=== PATIENT | male | born 1970 | race Two or more races ===

== ENCOUNTER 2023-11-28 10:00 | Outpatient (CLI) | payer SELFPAY ==
[~2023-11-28 10:00] MED LIST: iohexol 350MG/ML 100ml bottle IV ONE
== END 2023-11-28 17:45 | disposition home or self-care (01) ==
LOC: RAD 10:00
PROVIDERS: ATTEND Internal Medicine Interventional Cardiology
DX: I70.1 Atherosclerosis of renal artery (principal); I70.8 Atherosclerosis of other arteries; R91.8 Other nonspecific abnormal finding of lung field; N40.0 Benign prostatic hyperplasia without lower urinary tract symptoms; R07.9 Chest pain, unspecified; I71.20 Thoracic aortic aneurysm, without rupture, unspecified; I47.10 Supraventricular tachycardia, unspecified; Q23.1 Congenital insufficiency of aortic valve
CPT/HCPCS: 71275; 74174; Q9967

== ENCOUNTER 2024-02-03 10:59 | Day surgery (SDC) | payer SELFPAY ==
[2024-01-30 12:00] LABS: BASOPHILS % (AUTO) 0.5 % (0-1); EOSINOPHILS # (AUTO) 0.1 X10'3 (0-0.9); HEMATOCRIT 45.4 % (42.0-52.0); HEMOGLOBIN 15.7 g/dl (14.0-17.9); LYMPHOCYTES # (AUTO) 1.6 X10'3 (1.1-4.8); LYMPHOCYTES % (AUTO) 28.2 % (21-51); MEAN CORPUSCULAR HGB CONC 34.6 g/dL (33.0-36.5); MEAN CORPUSCULAR VOLUME 86.7 FL (78-98); MEAN PLATELET VOLUME 8.7 FL (7.4-10.4); MONOCYTES # (AUTO) 0.5 X10'3 (0-0.9); MONOCYTES % (AUTO) 8.7 % (2-12); NEUTROPHILS # (AUTO) 3.5 X10'3 (1.8-7.7); NEUTROPHILS % (AUTO) 61.6 % (42-75); PLATELET COUNT 182 X10'3 (140-440); RED BLOOD COUNT 5.23 X10'6 (4.70-6.10); WHITE BLOOD COUNT 5.6 X10'3 (4.5-11.0)
[2024-01-30 12:02] LABS: ALBUMIN 3.6 G/DL (3.4-5.0); ANION GAP 8 (8-16); BLOOD UREA NITROGEN 13 MG/DL (7-18); BUN/CREATININE RATIO 13.3 (10.0-20.0); CALCIUM 8.8 MG/DL (8.5-10.1); CHLORIDE 105 MMOL/L (99-107); CREATININE 0.98 MG/DL (0.60-1.10); GLUCOSE 103 MG/DL (70-104); SODIUM 143 MMOL/L (135-145); TOTAL CARBON DIOXIDE 30.4 MMOL/L (24-32); eGFR 79 ML/MIN
[2024-01-30 12:06] LABS: APTT 28 SECONDS (22-32); PROTHROMBIN TIME 10.5 SECONDS (9.0-12.0)
[2024-02-03] VITALS (10 sets, daily range): BP systolic 102–140; BP diastolic 52–77; PULSE 52–56; RESP 12–17; TEMP 98; O2SAT 95–98
[~2024-02-03] VITALS: Ht 152.4 cm; Wt 85.5 kg
[2024-02-03] MEDS ORDERED: METO-395 PO (11:19)
[2024-02-03] MEDS: normal saline 1,000 ML IV SCH (13:04)
[2024-02-03] MEDS: LORazepam 0.5 MG tablet PO PRN (13:04)
[2024-02-03] MEDS: diphenhydrAMINE 25mg capsule PO PRN (13:04)
[2024-02-03] MEDS ORDERED: heparin 1,000unit/ml 10ml vial 10 ML ONE (13:40)
[2024-02-03] MEDS ORDERED: fentaNYL/PF 50MCG/1 ML 2ML syringe ONE (13:40)
[2024-02-03] MEDS ORDERED: verapamil 2.5 mg/ml inj IV ONE (13:40)
[2024-02-03] MEDS ORDERED: LIDOcaine 1% (10mg/ml) 2ml vial ONE (13:40)
[2024-02-03] MEDS ORDERED: midazolam 1 mg/ML 2ml injection ONE (13:40)
[2024-02-03] MEDS ORDERED: nitroGLYCERIN 500mcg/5mL D5W 5 ML IV ONE (13:41)
[2024-02-03] MEDS ORDERED: iohexol 350MG/ML 100ml bottle IV ONE (13:41)
[2024-02-03] MEDS ORDERED: HYDROcodone/acetaminophen 5mg/325mg tablet PO PRN (15:40)
[2024-02-03] MEDS ORDERED: HYDROcodone/acetaminophen 10/325mg tab PO PRN (15:40)
== END 2024-02-03 18:30 | disposition home or self-care (01) ==
LOC: SSTAY O 10:59
PROVIDERS: ATTEND Internal Medicine Interventional Cardiology
DX: I71.20 Thoracic aortic aneurysm, without rupture, unspecified (principal); I25.10 Atherosclerotic heart disease of native coronary artery without angina pectoris; R94.31 Abnormal electrocardiogram [ECG] [EKG]; E78.00 Pure hypercholesterolemia, unspecified; Z79.899 Other long term (current) drug therapy
CPT/HCPCS: 36415; 80048; 85025; 85610; 85730; 93005; 93458; J1644; J2003; J2250; J3010; J3490; J7030; Q0163; Q9967; 99152; A6258; A6449; C1769; C1894

== ENCOUNTER 2024-03-11 12:33 | Outpatient (CLI) | payer BC, SELFPAY ==
[~2024-03-11] VITALS: Ht 172.7 cm; Wt 83.9 kg
[~2024-03-11 12:33] MED LIST changes: +METO-395 PO; -iohexol 350MG/ML 100ml bottle IV ONE
[2024-03-11] MEDS ORDERED: NO HOME MEDS (13:37)
[2024-03-11 14:09] LABS: BILIRUBIN,URINE NEGATIVE (Neg); CLARITY,URINE CLEAR (Clear); COLOR,URINE STRAW (Yellow); GLUCOSE, URINE NEGATIVE (Neg); KETONES,URINE NEGATIVE (Neg); LEUKOCYTE ESTERASE ,URINE NEGATIVE (Neg); NITRITES, URINE NEGATIVE (Neg); OCCULT BLOOD,URINE NEGATIVE (Neg); PH,URINE 6.5 (4.8-8.0); PROTEIN,URINE NEGATIVE (Neg); UROBILINOGEN,URINE 0.2 E.U/dL (0.2-1.0)
[2024-03-11 14:11] LABS: BASOPHILS % (AUTO) 0.8 % (0-1); EOSINOPHILS # (AUTO) 0.1 X10'3 (0-0.9); EOSINOPHILS % (AUTO) 1.3 % (0-6); MEAN CORPUSCULAR HEMOGLOBIN 30.7 PG (27.0-31.0); MEAN CORPUSCULAR HGB CONC 35.2 g/dL (33.0-36.5); MEAN PLATELET VOLUME 8.4 FL (7.4-10.4); MONOCYTES # (AUTO) 0.6 X10'3 (0-0.9); MONOCYTES % (AUTO) 9.6 % (2-12); NEUTROPHILS # (AUTO) 3.7 X10'3 (1.8-7.7); NEUTROPHILS % (AUTO) 57.3 % (42-75); PRE OP HEMATOCRIT 46.7 % (42.0-52.0); PRE OP HEMOGLOBIN 16.4 g/dL (14.0-17.9); PRE OP PLATELET COUNT 187 X10'3 (140-440); PRE OP WHITE BLOOD COUNT 6.4 10'3 (4.8-10.8); RED BLOOD COUNT 5.36 X10'6 (4.70-6.10); RED CELL DISTRIBUTION WIDTH 12.8 % (11.5-14.5)
[2024-03-11 14:13] LABS: UA COLLECTION TYPE CLN CATCH MIDSTREAM
[2024-03-11 14:23] LABS: ALBUMIN 3.9 G/DL (3.4-5.0); ALBUMIN/GLOBULIN RATIO 0.9 (1.1-1.5); ALKALINE PHOSPHATASE 110 IU/L (46-116); BLOOD UREA NITROGEN 13 MG/DL (7-18); BUN/CREATININE RATIO 13.7 (10.0-20.0); CALCIUM 9.2 MG/DL (8.5-10.1); CHLORIDE 103 MMOL/L (99-107); CREATININE 0.95 MG/DL (0.60-1.10); PRE OP ALT 25 U/L (30-65); PRE OP ANION GAP 8 (8-16); PRE OP AST 16 U/L (10-37); PRE OP BILIRUB, TOTAL 0.9 MG/DL (0.0-1.0); PRE OP GLUCOSE 99 MG/DL (70-104); PRE OP POTASSIUM 3.9 MMOL/L (3.4-5.1); PRE OP PROTIME 10.3 SECONDS (9.0-12.0); PRE OP SODIUM 140 MMOL/L (135-145); TOTAL CARBON DIOXIDE 29.2 MMOL/L (24-32); TOTAL PROTEIN 8.1 G/DL (6.4-8.2); eGFR 82 ML/MIN
[2024-03-11 14:31] LABS: HEMOGLOBIN A1C 5.3 % (4.5-6.2)
[2024-03-12 07:42] LABS: ABG BASE EXCESS -0.9 mmol/L (-2.0-3.0); ABG HCO3 23.1 mmol/L (21.0-28.0); ABG OXYGEN SATURATION 95.7 % (94.0-98.0); ABG PCO2 (T) 36.5 mmHg (35.0-48.0); ABG PH (T) 7.419 (7.350-7.450); ABG PO2 (T) 78.7 mmHg (83.0-108.0); ALLEN'S TEST POSITIVE; FCOHb 0.3 % (0.5-1.5); FHHb 4.3 % (0.0-5.0); FO2Hb 95.4 % (94.0-98.0); MODE ROOM AIR; TOTAL HEMOGLOBIN 16.6 G/dl (13.5-17.5)
[2024-03-16] MEDS ORDERED: famotidine 20mg tablet PO ONE (05:30)
[2024-03-16] MEDS ORDERED: ceFAZolin 2gm in dextrose, iso 50 ML IV ONE (05:30)
[2024-03-16] MEDS ORDERED: metoprolol tartrate 12.5mg (1/2 tablet) PO ONE (05:30)
[2024-03-16] MEDS ORDERED: dextrose 50%-water 50ml dispensing syringe IV PRN (05:30)
[2024-03-16] MEDS ORDERED: ringers solution, lacted 1,000 ML IV SCH (05:30)
[2024-03-16] MEDS ORDERED: LORazepam 2 mg/ml vial IV PRN (05:30)
[2024-03-16] MEDS ORDERED: VANCOMYCIN/H2O 1.5g/300mL PB 300 ML IV ONE (05:30)
[2024-03-16] MEDS ORDERED: Insulin Reg/NS 100units/100mL 100 ML IV SCH (05:30)
[2024-03-16] MEDS ORDERED: insulin glargine (Lantus) pen - multi-dose SQ PRN (05:30)
[2024-04-26] MEDS ORDERED: HYDR-3973 PO (10:23)
== END 2024-03-11 23:59 | disposition home or self-care (01) ==
LOC: LAB 12:33 → EDSTATUS 03-16 13:00
PROVIDERS: ATTEND Thoracic Surgery (Cardiothoracic Vascular Surgery)
DX: Q23.81 Bicuspid aortic valve (principal); R07.9 Chest pain, unspecified
CPT/HCPCS: 36415; 36600; 71046; 80053; 81003; 82803; 83036; 85018; 85025; 85610; 85730; 86885; 86900; 86901; 86920; 87081; 93005; 93970; 94010; A4615; J1815; J7120

== ENCOUNTER 2024-04-12 05:42 | Inpatient (IN) | payer BC ==
[2024-04-09 12:27] LABS: BILIRUBIN,URINE NEGATIVE (Neg); CLARITY,URINE CLEAR (Clear); GLUCOSE, URINE NEGATIVE (Neg); KETONES,URINE 15 mg/dl (Neg); LEUKOCYTE ESTERASE ,URINE NEGATIVE (Neg); NITRITES, URINE NEGATIVE (Neg); OCCULT BLOOD,URINE NEGATIVE (Neg); PROTEIN,URINE NEGATIVE (Neg); UROBILINOGEN,URINE 0.2 E.U/dL (0.2-1.0)
[2024-04-09 12:33] LABS: COLOR,URINE DARK YELLOW (Yellow); UA COLLECTION TYPE CLN CATCH MIDSTREAM
[2024-04-09 12:49] LABS: ALBUMIN 3.7 G/DL (3.4-5.0); ALBUMIN/GLOBULIN RATIO 0.9 (1.1-1.5); ALKALINE PHOSPHATASE 86 IU/L (46-116); BLOOD UREA NITROGEN 13 MG/DL (7-18); BUN/CREATININE RATIO 15.3 (10.0-20.0); CALCIUM 8.4 MG/DL (8.5-10.1); CHLORIDE 103 MMOL/L (99-107); CREATININE 0.85 MG/DL (0.60-1.10); PRE OP ALT 23 U/L (30-65); PRE OP ANION GAP 10 (8-16); PRE OP AST 25 U/L (10-37); PRE OP BILIRUB, TOTAL 1.2 MG/DL (0.0-1.0); PRE OP GLUCOSE 91 MG/DL (70-104); PRE OP POTASSIUM 3.8 MMOL/L (3.4-5.1); PRE OP SODIUM 138 MMOL/L (135-145); TOTAL CARBON DIOXIDE 24.9 MMOL/L (24-32); TOTAL PROTEIN 7.7 G/DL (6.4-8.2); eGFR > 90 ML/MIN
[2024-04-09 12:51] LABS: PRE OP PROTIME 10.9 SECONDS (9.0-12.0)
[2024-04-09 12:52] LABS: HEMOGLOBIN A1C 5.1 % (4.5-6.2)
[2024-04-09 14:05] LABS: BASOPHILS % (AUTO) 0.5 % (0-1); EOSINOPHILS % (AUTO) 0.8 % (0-6); LYMPHOCYTES # (AUTO) 1.5 X10'3 (1.1-4.8); LYMPHOCYTES % (AUTO) 30.2 % (21-51); MEAN CORPUSCULAR HEMOGLOBIN 30.1 PG (27.0-31.0); MEAN CORPUSCULAR HGB CONC 34.6 g/dL (33.0-36.5); MEAN CORPUSCULAR VOLUME 87.1 FL (78-98); MEAN PLATELET VOLUME 9.2 FL (7.4-10.4); MONOCYTES # (AUTO) 0.5 X10'3 (0-0.9); MONOCYTES % (AUTO) 9.1 % (2-12); NEUTROPHILS # (AUTO) 3.1 X10'3 (1.8-7.7); NEUTROPHILS % (AUTO) 59.4 % (42-75); PRE OP HEMATOCRIT 42.8 % (42.0-52.0); PRE OP HEMOGLOBIN 14.8 g/dL (14.0-17.9); PRE OP PLATELET COUNT 172 X10'3 (140-440); PRE OP WHITE BLOOD COUNT 5.1 10'3 (4.8-10.8); RED BLOOD COUNT 4.91 X10'6 (4.70-6.10); RED CELL DISTRIBUTION WIDTH 12.8 % (11.5-14.5)
[~2024-04-12] VITALS: Ht 325.1 cm; Wt 85.6 kg
[2024-04-12] VITALS (24 sets, daily range): BP systolic 82–135; BP diastolic 40–84; PULSE 59–89; RESP 12–20; TEMP 98.2; O2SAT 98–100
[2024-04-12] MEDS: ceFAZolin 2gm in dextrose, iso 50 ML IV ONE (05:30)
[~2024-04-12 05:42] MED LIST changes: +Insulin Reg/NS 100units/100mL 100 ML IV SCH; -METO-395 PO; +NO HOME MEDS; +dextrose 50%-water 50ml dispensing syringe IV PRN; +insulin glargine (Lantus) pen - multi-dose SQ PRN; +metoprolol tartrate 12.5mg (1/2 tablet) PO ONE
[2024-04-12] MEDS ORDERED: ceFAZolin 1000mg inj ONE ×2 (06:38→11:39)
[2024-04-12] MEDS ORDERED: epiNEPHrine 1 mg/ml inj ONE (06:38)
[2024-04-12] MEDS ORDERED: vancomycin 1,000mg inj ONE (06:38)
[2024-04-12] MEDS ORDERED: BUPIVAcaine 0.5% inj/PF 0 ML ONE (06:38)
[2024-04-12] MEDS: VANCOMYCIN/H2O 1.5g/300mL PB 300 ML IV ONE (06:51)
[2024-04-12] MEDS: famotidine 20mg tablet PO ONE (06:52)
[2024-04-12] MEDS: ringers solution, lacted 1,000 ML IV SCH (06:52)
[2024-04-12] MEDS: mupirocin 2% nasal ointment 1gm UD NS ONE (07:23)
[2024-04-12] MEDS ORDERED: MIDAZolam 1mg/ml 10ml vial ONE (07:30)
[2024-04-12] MEDS ORDERED: SUfentanil 50mcg/ml 1ml amp IV ONE (07:31)
[2024-04-12] MEDS ORDERED: fentaNYL/PF 50MCG/1 ML 2ML syringe IV PRN (07:40)
[2024-04-12] MEDS: midazolam 1 mg/ML 2ml injection IV ONE (07:40)
[2024-04-12] MEDS: midazolam 100mg in NS 100ml 100 ML IV SCH (07:40)
[2024-04-12] MEDS: FENTANYL-0.9 % NACL/PF 100 ML IV SCH (07:40)
[2024-04-12] MEDS ORDERED: isoflurane 100ml inhalation liquid IH ONE (08:00)
[2024-04-12] MEDS: LORazepam 2 mg/ml vial IV PRN (08:16)
[2024-04-12 08:57] LABS: ABG BASE EXCESS -1.1 mmol/L (-2.0-3.0); ABG HCO3 22.4 mmol/L (21.0-28.0); ABG OXYGEN SATURATION 99.4 % (94.0-98.0); ABG PH 7.437 (7.350-7.450); ABG PO2 403.3 mmHg (83.0-108.0); CL (ABG) 105 mmol/L (98-107); FHHb 0.6 % (0.0-5.0); FMetHb 0.2 % (0.0-1.5); FO2Hb 99.2 % (94.0-98.0); GLUCOSE (ABG) 100 mg/dl (65-95); IONIZED CA (ABG) 1.09 mmol/L (1.15-1.33); K (ABG) 3.6 mmol/L (3.40-4.50); TOTAL HEMOGLOBIN 14.6 G/dl (13.5-17.5)
[2024-04-12] MEDS: epiNEPHrine 1 mg/ml inj IU ONE (08:58)
[2024-04-12] MEDS ORDERED: phenylephrine 10mg/ml inj. ONE (09:25)
[2024-04-12] MEDS ORDERED: 0.9 % SODIUM CHLORIDE 10 ML VIAL ONE (09:25)
[2024-04-12] MEDS ORDERED: LIDOcaine 2% (20mg/ml) 5ml vial ONE (09:25)
[2024-04-12] MEDS ORDERED: propofol inj 20 ML IV ONE (09:25)
[2024-04-12] MEDS ORDERED: rocuronium 10mg/ml inj IV ONE ×5 (09:25→11:20)
[2024-04-12 09:28] LABS: ABG BASE EXCESS VENOUS -0.9 mmol/L (-2.0-3.0); ABG HCO3 VENOUS 24.2 mmol/L (22.0-29.0); ABG OXYGEN SATURATION VENOUS 89.9 % (60.0-85.0); ABG PCO2 VENOUS 41.7 mmHg (38.0-54.0); ABG PH (VENOUS) 7.381 (7.320-7.430); ABG PO2 VENOUS 58.3 mmHg (23.0-48.0); CL (ABG) 98 mmol/L (98-107); FCOHb VENOUS 0.3 % (0.5-1.5); FMetHb VENOUS 0.3 % (0.5-1.5); FO2Hb VENOUS 89.4 % (0-80.0); GLUCOSE (ABG) 91 mg/dl (65-95); IONIZED CA (ABG) 0.98 mmol/L (1.15-1.33); TOTAL HEMOGLOBIN 11.2 G/dl (13.5-17.5)
[2024-04-12 09:31] LABS: ABG BASE EXCESS -0.4 mmol/L (-2.0-3.0); ABG HCO3 24.8 mmol/L (21.0-28.0); ABG OXYGEN SATURATION 99.3 % (94.0-98.0); ABG PCO2 42.7 mmHg (35.0-48.0); ABG PH 7.382 (7.350-7.450); CL (ABG) 100 mmol/L (98-107); FCOHb 0.3 % (0.5-1.5); FHHb 0.7 % (0.0-5.0); GLUCOSE (ABG) 94 mg/dl (65-95); K (ABG) 3.9 mmol/L (3.40-4.50); TOTAL HEMOGLOBIN 11.5 G/dl (13.5-17.5)
[2024-04-12 10:01] LABS: ABG BASE EXCESS -0.4 mmol/L (-2.0-3.0); ABG HCO3 24.9 mmol/L (21.0-28.0); ABG OXYGEN SATURATION 99.2 % (94.0-98.0); ABG PCO2 43.3 mmHg (35.0-48.0); ABG PH 7.378 (7.350-7.450); CL (ABG) 102 mmol/L (98-107); FCOHb 0.3 % (0.5-1.5); FHHb 0.8 % (0.0-5.0); FMetHb 0.3 % (0.0-1.5); FO2Hb 98.6 % (94.0-98.0); GLUCOSE (ABG) 99 mg/dl (65-95); IONIZED CA (ABG) 1.04 mmol/L (1.15-1.33); K (ABG) 4.3 mmol/L (3.40-4.50)
[2024-04-12 10:28] LABS: ABG BASE EXCESS 2.5 mmol/L (-2.0-3.0); ABG HCO3 27.7 mmol/L (21.0-28.0); ABG PCO2 45.4 mmHg (35.0-48.0); ABG PH 7.403 (7.350-7.450); CL (ABG) 99 mmol/L (98-107); FCOHb 0.3 % (0.5-1.5); FMetHb 0.1 % (0.0-1.5); FO2Hb 98.6 % (94.0-98.0); GLUCOSE (ABG) 105 mg/dl (65-95); IONIZED CA (ABG) 0.99 mmol/L (1.15-1.33); K (ABG) 4.3 mmol/L (3.40-4.50)
[2024-04-12 10:50] LABS: ABG BASE EXCESS 1.1 mmol/L (-2.0-3.0); ABG HCO3 23.3 mmol/L (21.0-28.0); ABG OXYGEN SATURATION 98.9 % (94.0-98.0); ABG PCO2 29.5 mmHg (35.0-48.0); ABG PH 7.516 (7.350-7.450); CL (ABG) 105 mmol/L (98-107); FCOHb 0.3 % (0.5-1.5); FHHb 1.1 % (0.0-5.0); FMetHb 0.1 % (0.0-1.5); FO2Hb 98.5 % (94.0-98.0); GLUCOSE (ABG) 98 mg/dl (65-95); IONIZED CA (ABG) 1.53 mmol/L (1.15-1.33); K (ABG) 4.5 mmol/L (3.40-4.50)
[2024-04-12 10:53] LABS: ACTIVATED CLOTTING TIME 122 SEC (101-148)
[2024-04-12 11:16] LABS: ABG BASE EXCESS -5.3 mmol/L (-2.0-3.0); ABG HCO3 19.3 mmol/L (21.0-28.0); ABG PCO2 33.7 mmHg (35.0-48.0); ABG PH 7.375 (7.350-7.450); CL (ABG) 109 mmol/L (98-107); FCOHb 0.3 % (0.5-1.5); FMetHb 0.3 % (0.0-1.5); FO2Hb 98.4 % (94.0-98.0); GLUCOSE (ABG) 155 mg/dl (65-95); IONIZED CA (ABG) 1.45 mmol/L (1.15-1.33); K (ABG) 5.9 mmol/L (3.40-4.50); TOTAL HEMOGLOBIN 9.6 G/dl (13.5-17.5)
[2024-04-12] MEDS ORDERED: calcium chloride 100 MG/1 ML inj IV ONE ×2 (11:20)
[2024-04-12] MEDS ORDERED: albumin (Human) 5% 250ml 1,000 ML IV ONE (11:26)
[2024-04-12 11:41] LABS: ABG BASE EXCESS -0.2 mmol/L (-2.0-3.0); ABG HCO3 23.4 mmol/L (21.0-28.0); ABG OXYGEN SATURATION 98.8 % (94.0-98.0); ABG PCO2 34.5 mmHg (35.0-48.0); CL (ABG) 107 mmol/L (98-107); FCOHb 0.2 % (0.5-1.5); FHHb 1.2 % (0.0-5.0); FMetHb 0.1 % (0.0-1.5); FO2Hb 98.5 % (94.0-98.0); GLUCOSE (ABG) 144 mg/dl (65-95); IONIZED CA (ABG) 1.29 mmol/L (1.15-1.33); K (ABG) 4.6 mmol/L (3.40-4.50); TOTAL HEMOGLOBIN 9.8 G/dl (13.5-17.5)
[2024-04-12] MEDS ORDERED: albumin (Human) 5% 250ml 250 ML IV ONE ×4 (12:10)
[2024-04-12 12:15] LABS: ABG BASE EXCESS -0.8 mmol/L (-2.0-3.0); ABG HCO3 23.9 mmol/L (21.0-28.0); ABG OXYGEN SATURATION 98.7 % (94.0-98.0); ABG PH 7.395 (7.350-7.450); CL (ABG) 108 mmol/L (98-107); FCOHb 0.3 % (0.5-1.5); FHHb 1.3 % (0.0-5.0); FMetHb 0.2 % (0.0-1.5); FO2Hb 98.2 % (94.0-98.0); GLUCOSE (ABG) 143 mg/dl (65-95); IONIZED CA (ABG) 1.18 mmol/L (1.15-1.33); K (ABG) 4.5 mmol/L (3.40-4.50); TOTAL HEMOGLOBIN 9.1 G/dl (13.5-17.5)
[2024-04-12 12:39] LABS: ABG BASE EXCESS -0.8 mmol/L (-2.0-3.0); ABG HCO3 22.1 mmol/L (21.0-28.0); ABG OXYGEN SATURATION 99.1 % (94.0-98.0); ABG PCO2 29.9 mmHg (35.0-48.0); ABG PH 7.486 (7.350-7.450); CL (ABG) 111 mmol/L (98-107); FCOHb 0.3 % (0.5-1.5); FHHb 0.9 % (0.0-5.0); FMetHb 0.1 % (0.0-1.5); FO2Hb 98.7 % (94.0-98.0); GLUCOSE (ABG) 131 mg/dl (65-95); IONIZED CA (ABG) 1.72 mmol/L (1.15-1.33); K (ABG) 4.1 mmol/L (3.40-4.50); TOTAL HEMOGLOBIN 9.1 G/dl (13.5-17.5)
[2024-04-12 12:43] LABS: ACTIVATED CLOTTING TIME 174 SEC (101-148)
[2024-04-12] MEDS ORDERED: insulin glargine (Lantus) pen - multi-dose SQ PRN (13:20)
[2024-04-12] MEDS ORDERED: sodium phosphate inj. 30 MMOL in dextrose 5%-water 250 ML IV PRN (13:20)
[2024-04-12] MEDS ORDERED: potassium CL 10mEq/100ml bag 100 ML IV PRN (13:20)
[2024-04-12] MEDS ORDERED: NORepinephrine 8mg/ 250ml NS 250 ML IV PRN (13:20)
[2024-04-12] MEDS ORDERED: potassium Cl 40MEQ/1/2NS 520ml 520 ML IV PRN (13:20)
[2024-04-12] MEDS ORDERED: mineral oil 133ml enema RC PRN (13:20)
[2024-04-12] MEDS ORDERED: nitroGLYCERIN-Tridil 50MG/D5W 250 ML IV PRN (13:20)
[2024-04-12] MEDS ORDERED: niCARDipine-NS 40mg/200ml IVPB 200 ML IV PRN (13:20)
[2024-04-12] MEDS ORDERED: dextrose 50%-water 50ml dispensing syringe IV PRN (13:20)
[2024-04-12] MEDS ORDERED: morphine 4 MG/ML inj SYRINge IV PRN (13:20)
[2024-04-12] MEDS ORDERED: metoclopramide 5 mg/ml inj IV PRN (13:20)
[2024-04-12] MEDS ORDERED: bisacodyl 10mg suppository rectal RC PRN (13:20)
[2024-04-12] MEDS ORDERED: potassium Cl 40MEQ/270ML bag 250 ML IV PRN (13:20)
[2024-04-12] MEDS ORDERED: acetaminophen 325mg tablet PO PRN (13:20)
[2024-04-12] MEDS ORDERED: magnesium sulf-water 2g/50mL 50 ML IV PRN (13:20)
[2024-04-12] MEDS ORDERED: Neutra Phos packet PO PRN (13:20)
[2024-04-12 13:28] LABS: BASOPHILS % (AUTO) 0.2 % (0-1); EOSINOPHILS % (AUTO) 0.4 % (0-6); HEMOGLOBIN 10.1 g/dl (14.0-17.9); MEAN CORPUSCULAR HEMOGLOBIN 30.5 PG (27.0-31.0); MEAN CORPUSCULAR HGB CONC 34.8 g/dL (33.0-36.5); MEAN CORPUSCULAR VOLUME 87.8 FL (78-98); MEAN PLATELET VOLUME 8.2 FL (7.4-10.4); MONOCYTES # (AUTO) 0.5 X10'3 (0-0.9); MONOCYTES % (AUTO) 4.3 % (2-12); NEUTROPHILS # (AUTO) 9.5 X10'3 (1.8-7.7); NEUTROPHILS % (AUTO) 86.1 % (42-75); PLATELET COUNT 128 X10'3 (140-440); RED CELL DISTRIBUTION WIDTH 12.9 % (11.5-14.5)
[2024-04-12] MEDS: albumin (Human) 5% 250ml 250 ML IV PRN (13:44)
[2024-04-12 13:45] LABS: ABG HCO3 20.5 mmol/L (21.0-28.0); ABG OXYGEN SATURATION 99.3 % (94.0-98.0); ABG PH (T) 7.437 (7.350-7.450); ABG PO2 (T) 343.7 mmHg (83.0-108.0); FCOHb 0.3 % (0.5-1.5); FHHb 0.7 % (0.0-5.0); FMetHb 0.3 % (0.0-1.5); FO2Hb 98.7 % (94.0-98.0); MODE VENT - SIMV; PATIENT TEMPERATURE 36.9; PEEP 5 cm H2O; RESPIRATORY RATE 12 b/min; TIDAL VOLUME 600 mL; TOTAL HEMOGLOBIN 10.2 G/dl (13.5-17.5)
[2024-04-12 13:52] LABS: APTT 20 SECONDS (22-32); FIBRINOGEN 95 MG/DL (177-424); INR 1.9 INR; PROTHROMBIN TIME 18.9 SECONDS (9.0-12.0)
[2024-04-12] MEDS: sodium chloride 0.45% 1,000 ML IV SCH (13:55)
[2024-04-12] MEDS: Insulin Reg/NS 100units/100mL 100 ML IV SCH (13:56)
[2024-04-12 14:04] LABS: ALANINE AMINOTRANSFERASE 16 U/L (12-78); ALBUMIN 2.4 G/DL (3.4-5.0); ALBUMIN/GLOBULIN RATIO 2.4 (1.1-1.5); ALKALINE PHOSPHATASE 29 IU/L (46-116); ANION GAP 8 (8-16); ASPARTATE AMINO TRANSFERASE 40 U/L (10-37); BLOOD UREA NITROGEN 9 MG/DL (7-18); BUN/CREATININE RATIO 12.7 (10.0-20.0); CHLORIDE 115 MMOL/L (99-107); CREATININE 0.71 MG/DL (0.60-1.10); GLUCOSE 133 MG/DL (70-104); MAGNESIUM 2.5 MG/DL (1.5-2.4); PHOSPHORUS 1.7 MG/DL (2.3-4.5); POTASSIUM 3.8 MMOL/L (3.5-5.1); SODIUM 145 MMOL/L (135-145); TOTAL CARBON DIOXIDE 21.9 MMOL/L (24-32); TOTAL PROTEIN 3.4 G/DL (6.4-8.2); eCRCL 112 ML/MIN; eGFR > 90 ML/MIN
[2024-04-12] MEDS: ketorolac trometh 15mg/ml vial 15 MG/ML ML IV SCH (14:10)
[2024-04-12] MEDS: potassium Cl 20mEq/100mL bag 100 ML IV PRN (14:10)
[2024-04-12] MEDS: sodium phosphate inj. 15 MMOL in dextrose 5%-water 250 ML IV PRN (14:31)
[2024-04-12] MEDS: NORepinephrine 8mg/ 250ml NS 250 ML IV SCH (14:47)
[2024-04-12 15:32] LABS: ABG PO2 483.1 mmHg (83.0-108.0)
[2024-04-12] MEDS: ceFAZolin/D5W- 1GM premix 50 ML IV SCH (15:57)
[2024-04-12 18:28] LABS: APTT 39 SECONDS (22-32); INR 1.6 INR; PROTHROMBIN TIME 16.1 SECONDS (9.0-12.0)
[2024-04-12 19:22] LABS: BASOPHILS % (AUTO) 0.1 % (0-1); EOSINOPHILS % (AUTO) 0 % (0-6); HEMATOCRIT 22.8 % (42.0-52.0); HEMOGLOBIN 7.9 g/dl (14.0-17.9); LYMPHOCYTES # (AUTO) 0.5 X10'3 (1.1-4.8); LYMPHOCYTES % (AUTO) 4.5 % (21-51); MEAN CORPUSCULAR HEMOGLOBIN 30.2 PG (27.0-31.0); MEAN CORPUSCULAR HGB CONC 34.4 g/dL (33.0-36.5); MEAN CORPUSCULAR VOLUME 87.6 FL (78-98); MEAN PLATELET VOLUME 8.6 FL (7.4-10.4); MONOCYTES # (AUTO) 0.6 X10'3 (0-0.9); MONOCYTES % (AUTO) 4.8 % (2-12); NEUTROPHILS # (AUTO) 10.4 X10'3 (1.8-7.7); NEUTROPHILS % (AUTO) 90.6 % (42-75); PLATELET COUNT 106 X10'3 (140-440); RED CELL DISTRIBUTION WIDTH 12.8 % (11.5-14.5); WHITE BLOOD COUNT 11.5 X10'3 (4.5-11.0)
[2024-04-12] MEDS: albumin (Human) 5% 250ml 250 ML IV ONE ×2 (19:37→20:12)
[2024-04-12 19:42] LABS: ALBUMIN 3.1 G/DL (3.4-5.0); ANION GAP 12 (8-16); BLOOD UREA NITROGEN 10 MG/DL (7-18); BUN/CREATININE RATIO 9.3 (10.0-20.0); CALCIUM 8.5 MG/DL (8.5-10.1); CHLORIDE 113 MMOL/L (99-107); CREATININE 1.07 MG/DL (0.60-1.10); GLUCOSE 166 MG/DL (70-104); MAGNESIUM 2.9 MG/DL (1.5-2.4); PHOSPHORUS 3.9 MG/DL (2.3-4.5); POTASSIUM 4.1 MMOL/L (3.5-5.1); SODIUM 146 MMOL/L (135-145); TOTAL CARBON DIOXIDE 20.6 MMOL/L (24-32); eCRCL 75 ML/MIN; eGFR 71 ML/MIN
[2024-04-12 19:42] LABS: FIBRINOGEN 100 MG/DL (177-424)
[2024-04-12] MEDS: sennosides/docusate sodium tablet PO SCH (20:00)
[2024-04-12] MEDS: mupirocin 2% nasal ointment 1gm UD NS SCH (20:13)
[2024-04-12] MEDS: atorvastatin 10mg tablet PO SCH (21:00)
[2024-04-12 21:02] LABS: ABG BASE EXCESS -2.6 mmol/L (-2.0-3.0); ABG HCO3 20.6 mmol/L (21.0-28.0); ABG OXYGEN SATURATION 99.4 % (94.0-98.0); ABG PCO2 (T) 30.2 mmHg (35.0-48.0); ABG PH (T) 7.456 (7.350-7.450); ABG PO2 (T) 186.8 mmHg (83.0-108.0); FCOHb 0.8 % (0.5-1.5); FHHb 0.6 % (0.0-5.0); FMetHb 0.3 % (0.0-1.5); FO2Hb 98.3 % (94.0-98.0); MODE VENT - CPAP; TOTAL HEMOGLOBIN 7.4 G/dl (13.5-17.5)
[2024-04-12] MEDS: VANCOMYCIN 1GM 200ML H20 (PEG) 200 ML IV SCH (21:40)
[2024-04-12] MEDS: morphine 2 MG/ML inj. syringe IV PRN (23:23)
[2024-04-13] VITALS (29 sets, daily range): BP systolic 73–125; BP diastolic 44–74; PULSE 71–140; RESP 14–22; TEMP 99.5–100.2; O2SAT 93–100
[2024-04-13 02:52] LABS: BASOPHILS % (AUTO) 0.2 % (0-1); EOSINOPHILS % (AUTO) 0 % (0-6); LYMPHOCYTES # (AUTO) 0.5 X10'3 (1.1-4.8); LYMPHOCYTES % (AUTO) 3.7 % (21-51); MEAN CORPUSCULAR HEMOGLOBIN 30.1 PG (27.0-31.0); MEAN CORPUSCULAR HGB CONC 34.2 g/dL (33.0-36.5); MEAN CORPUSCULAR VOLUME 88.1 FL (78-98); MEAN PLATELET VOLUME 9.4 FL (7.4-10.4); MONOCYTES # (AUTO) 0.4 X10'3 (0-0.9); MONOCYTES % (AUTO) 3.3 % (2-12); NEUTROPHILS # (AUTO) 11.7 X10'3 (1.8-7.7); NEUTROPHILS % (AUTO) 92.8 % (42-75); PLATELET COUNT 87 X10'3 (140-440); RED BLOOD COUNT 2.05 X10'6 (4.70-6.10); RED CELL DISTRIBUTION WIDTH 13.2 % (11.5-14.5); WHITE BLOOD COUNT 12.6 X10'3 (4.5-11.0)
[2024-04-13 03:04] LABS: APTT 46 SECONDS (22-32); INR 1.5 INR; PROTHROMBIN TIME 14.9 SECONDS (9.0-12.0)
[2024-04-13 03:14] LABS: ALANINE AMINOTRANSFERASE 26 U/L (12-78); ALBUMIN 3.3 G/DL (3.4-5.0); ALBUMIN/GLOBULIN RATIO 2.8 (1.1-1.5); ALKALINE PHOSPHATASE 23 IU/L (46-116); ANION GAP 11 (8-16); ASPARTATE AMINO TRANSFERASE 151 U/L (10-37); BILIRUBIN,TOTAL 3.3 MG/DL (0.1-1.0); BLOOD UREA NITROGEN 13 MG/DL (7-18); BUN/CREATININE RATIO 12.9 (10.0-20.0); CALCIUM 7.9 MG/DL (8.5-10.1); CHLORIDE 112 MMOL/L (99-107); CREATININE 1.01 MG/DL (0.60-1.10); GLUCOSE 144 MG/DL (70-104); MAGNESIUM 1.6 MG/DL (1.5-2.4); PHOSPHORUS 2.9 MG/DL (2.3-4.5); POTASSIUM 3.9 MMOL/L (3.5-5.1); SODIUM 144 MMOL/L (135-145); TOTAL CARBON DIOXIDE 21.2 MMOL/L (24-32); TOTAL PROTEIN 4.5 G/DL (6.4-8.2); eCRCL 79 ML/MIN; eGFR 76 ML/MIN
[2024-04-13 03:22] LABS: HEMOGLOBIN 6.2 g/dl (14.0-17.9)
[2024-04-13] MEDS: ondansetron/PF 4mg/2ml inj IV PRN (03:49)
[2024-04-13] MEDS: aspirin 81mg tab.chew PO SCH (07:50)
[2024-04-13] MEDS: metoprolol tartrate 12.5mg (1/2 tablet) PO SCH (08:00)
[2024-04-13] MEDS ORDERED: mineral oil/petrolatum ophthal oint EACHEYE SCH (08:00)
[2024-04-13 08:47] LABS: ABG PO2 452.8 mmHg (83.0-108.0)
[2024-04-13 08:47] LABS: ABG PO2 444.2 mmHg (83.0-108.0)
[2024-04-13 08:47] LABS: ABG PO2 387.3 mmHg (83.0-108.0)
[2024-04-13 08:48] LABS: ABG PO2 386.6 mmHg (83.0-108.0)
[2024-04-13 08:49] LABS: ABG PO2 375.2 mmHg (83.0-108.0)
[2024-04-13 08:49] LABS: ABG PO2 418.9 mmHg (83.0-108.0)
[2024-04-13 09:27] LABS: BASOPHILS % (AUTO) 0.1 % (0-1); EOSINOPHILS % (AUTO) 0 % (0-6); HEMOGLOBIN 7.5 g/dl (14.0-17.9); LYMPHOCYTES # (AUTO) 0.9 X10'3 (1.1-4.8); LYMPHOCYTES % (AUTO) 5.9 % (21-51); MEAN CORPUSCULAR HEMOGLOBIN 30.3 PG (27.0-31.0); MEAN CORPUSCULAR HGB CONC 34.1 g/dL (33.0-36.5); MEAN CORPUSCULAR VOLUME 88.9 FL (78-98); MEAN PLATELET VOLUME 9.6 FL (7.4-10.4); MONOCYTES % (AUTO) 6.7 % (2-12); NEUTROPHILS # (AUTO) 13.5 X10'3 (1.8-7.7); NEUTROPHILS % (AUTO) 87.3 % (42-75); PLATELET COUNT 93 X10'3 (140-440); RED BLOOD COUNT 2.47 X10'6 (4.70-6.10); RED CELL DISTRIBUTION WIDTH 13.6 % (11.5-14.5); WHITE BLOOD COUNT 15.4 X10'3 (4.5-11.0)
[2024-04-13 10:28] LABS: ALANINE AMINOTRANSFERASE 33 U/L (12-78); ALBUMIN 3.2 G/DL (3.4-5.0); ALKALINE PHOSPHATASE 29 IU/L (46-116); ANION GAP 13 (8-16); ASPARTATE AMINO TRANSFERASE 157 U/L (10-37); BILIRUBIN,TOTAL 2.8 MG/DL (0.1-1.0); BLOOD UREA NITROGEN 15 MG/DL (7-18); BUN/CREATININE RATIO 14.9 (10.0-20.0); CALCIUM 7.9 MG/DL (8.5-10.1); CHLORIDE 110 MMOL/L (99-107); CREATININE 1.01 MG/DL (0.60-1.10); GLUCOSE 178 MG/DL (70-104); POTASSIUM 4.2 MMOL/L (3.5-5.1); SODIUM 143 MMOL/L (135-145); TOTAL PROTEIN 4.8 G/DL (6.4-8.2); eCRCL 79 ML/MIN; eGFR 76 ML/MIN
[2024-04-13] MEDS: HYDROcodone/acetaminophen 10/325mg tab PO PRN ×2 (11:43→16:08)
[2024-04-13 14:16] LABS: BASOPHILS % (AUTO) 0 % (0-1); EOSINOPHILS % (AUTO) 0 % (0-6); HEMATOCRIT 27.9 % (42.0-52.0); HEMOGLOBIN 9.4 g/dl (14.0-17.9); LYMPHOCYTES # (AUTO) 0.9 X10'3 (1.1-4.8); LYMPHOCYTES % (AUTO) 5.7 % (21-51); MEAN CORPUSCULAR HEMOGLOBIN 29.4 PG (27.0-31.0); MEAN CORPUSCULAR HGB CONC 33.8 g/dL (33.0-36.5); MEAN CORPUSCULAR VOLUME 87.1 FL (78-98); MEAN PLATELET VOLUME 9.3 FL (7.4-10.4); MONOCYTES # (AUTO) 1.5 X10'3 (0-0.9); MONOCYTES % (AUTO) 9.4 % (2-12); NEUTROPHILS # (AUTO) 13.7 X10'3 (1.8-7.7); NEUTROPHILS % (AUTO) 84.9 % (42-75); PLATELET COUNT 76 X10'3 (140-440); RED BLOOD COUNT 3.21 X10'6 (4.70-6.10); RED CELL DISTRIBUTION WIDTH 14.1 % (11.5-14.5); WHITE BLOOD COUNT 16.1 X10'3 (4.5-11.0)
[2024-04-13] MEDS: amiodarone/D5 360MG/200ML BAG 200 ML IV SCH (14:18)
[2024-04-13] MEDS: amiodarone 150mg/dext, iso-os 100 ML IV ONE (14:18)
[2024-04-13 14:34] LABS: ALANINE AMINOTRANSFERASE 35 U/L (12-78); ALBUMIN 3.1 G/DL (3.4-5.0); ALBUMIN/GLOBULIN RATIO 1.9 (1.1-1.5); ALKALINE PHOSPHATASE 33 IU/L (46-116); ANION GAP 9 (8-16); ASPARTATE AMINO TRANSFERASE 136 U/L (10-37); BILIRUBIN,TOTAL 2.5 MG/DL (0.1-1.0); BLOOD UREA NITROGEN 17 MG/DL (7-18); BUN/CREATININE RATIO 17.7 (10.0-20.0); CALCIUM 7.6 MG/DL (8.5-10.1); CHLORIDE 109 MMOL/L (99-107); CREATININE 0.96 MG/DL (0.60-1.10); GLUCOSE 196 MG/DL (70-104); MAGNESIUM 1.6 MG/DL (1.5-2.4); POTASSIUM 4.2 MMOL/L (3.5-5.1); SODIUM 140 MMOL/L (135-145); TOTAL CARBON DIOXIDE 21.7 MMOL/L (24-32); TOTAL PROTEIN 4.7 G/DL (6.4-8.2); eCRCL 83 ML/MIN; eGFR 81 ML/MIN
[2024-04-13] MEDS ORDERED: diphenhydrAMINE 50 mg/ml inj IV PRN (15:05)
[2024-04-13] MEDS: magnesium sulf-water 4G/100mL 100 ML IV PRN (17:01)
[2024-04-13 21:54] LABS: HEMATOCRIT 26.4 % (42.0-52.0); HEMOGLOBIN 8.9 g/dl (14.0-17.9); MEAN CORPUSCULAR HEMOGLOBIN 29.5 PG (27.0-31.0); MEAN CORPUSCULAR HGB CONC 33.9 g/dL (33.0-36.5); MEAN CORPUSCULAR VOLUME 86.9 FL (78-98); MEAN PLATELET VOLUME 9.8 FL (7.4-10.4); PLATELET COUNT 82 X10'3 (140-440); RED BLOOD COUNT 3.03 X10'6 (4.70-6.10); RED CELL DISTRIBUTION WIDTH 14.4 % (11.5-14.5); WHITE BLOOD COUNT 17.5 X10'3 (4.5-11.0)
[2024-04-14] VITALS (23 sets, daily range): BP systolic 72–128; BP diastolic 39–74; PULSE 62–90; RESP 12–24; O2SAT 90–98
[2024-04-14 03:16] LABS: BASOPHILS % (AUTO) 0.1 % (0-1); EOSINOPHILS % (AUTO) 0 % (0-6); HEMATOCRIT 27.6 % (42.0-52.0); HEMOGLOBIN 9.3 g/dl (14.0-17.9); LYMPHOCYTES # (AUTO) 0.9 X10'3 (1.1-4.8); LYMPHOCYTES % (AUTO) 5.5 % (21-51); MEAN CORPUSCULAR HEMOGLOBIN 29.4 PG (27.0-31.0); MEAN CORPUSCULAR HGB CONC 33.6 g/dL (33.0-36.5); MEAN CORPUSCULAR VOLUME 87.4 FL (78-98); MONOCYTES # (AUTO) 1.6 X10'3 (0-0.9); MONOCYTES % (AUTO) 9.4 % (2-12); NEUTROPHILS # (AUTO) 14.5 X10'3 (1.8-7.7); PLATELET COUNT 85 X10'3 (140-440); RED BLOOD COUNT 3.15 X10'6 (4.70-6.10); RED CELL DISTRIBUTION WIDTH 14.8 % (11.5-14.5)
[2024-04-14 03:26] LABS: ANION GAP 6 (8-16); BLOOD UREA NITROGEN 19 MG/DL (7-18); BUN/CREATININE RATIO 23.8 (10.0-20.0); CALCIUM 7.5 MG/DL (8.5-10.1); CHLORIDE 109 MMOL/L (99-107); GLUCOSE 175 MG/DL (70-104); MAGNESIUM 2.5 MG/DL (1.5-2.4); PHOSPHORUS 2.5 MG/DL (2.3-4.5); POTASSIUM 4.2 MMOL/L (3.5-5.1); SODIUM 139 MMOL/L (135-145); TOTAL CARBON DIOXIDE 24.3 MMOL/L (24-32); eCRCL 100 ML/MIN; eGFR > 90 ML/MIN
[2024-04-14] MEDS: pantoprazole 40mg Tablet.DR PO SCH (06:53)
[2024-04-14] MEDS: albumin (human) 25% 100 ML IV solution IV ONE ×2 (09:15→15:52)
[2024-04-14] MEDS: clopidogrel 75mg tablet PO SCH (12:39)
[2024-04-14] MEDS: potassium Cl 20 mEq SR tablet PO PRN (12:39)
[2024-04-14] MEDS: midodrine 5mg tablet PO SCH (12:39)
[2024-04-15] VITALS (20 sets, daily range): BP systolic 84–112; BP diastolic 52–65; PULSE 58–100; RESP 10–22; TEMP 97.1–97.4; O2SAT 95–99
[2024-04-15 02:24] LABS: BASOPHILS % (AUTO) 0 % (0-1); EOSINOPHILS % (AUTO) 0 % (0-6); HEMATOCRIT 23.3 % (42.0-52.0); LYMPHOCYTES # (AUTO) 0.9 X10'3 (1.1-4.8); LYMPHOCYTES % (AUTO) 7.7 % (21-51); MEAN CORPUSCULAR HEMOGLOBIN 30.3 PG (27.0-31.0); MEAN CORPUSCULAR HGB CONC 34.3 g/dL (33.0-36.5); MEAN CORPUSCULAR VOLUME 88.3 FL (78-98); MEAN PLATELET VOLUME 10.4 FL (7.4-10.4); MONOCYTES % (AUTO) 8.8 % (2-12); NEUTROPHILS # (AUTO) 9.8 X10'3 (1.8-7.7); NEUTROPHILS % (AUTO) 83.5 % (42-75); PLATELET COUNT 58 X10'3 (140-440); RED BLOOD COUNT 2.64 X10'6 (4.70-6.10); RED CELL DISTRIBUTION WIDTH 14.8 % (11.5-14.5); WHITE BLOOD COUNT 11.8 X10'3 (4.5-11.0)
[2024-04-15 02:33] LABS: ALBUMIN 3.3 G/DL (3.4-5.0); ANION GAP 6 (8-16); BLOOD UREA NITROGEN 24 MG/DL (7-18); CALCIUM 7.6 MG/DL (8.5-10.1); CHLORIDE 103 MMOL/L (99-107); CREATININE 0.96 MG/DL (0.60-1.10); GLUCOSE 162 MG/DL (70-104); MAGNESIUM 2.8 MG/DL (1.5-2.4); PHOSPHORUS 2.5 MG/DL (2.3-4.5); POTASSIUM 4.8 MMOL/L (3.5-5.1); SODIUM 133 MMOL/L (135-145); TOTAL CARBON DIOXIDE 23.8 MMOL/L (24-32); eCRCL 83 ML/MIN; eGFR 81 ML/MIN
[2024-04-15] MEDS ORDERED: magnesium sulf-water 4G/100mL 100 ML IV PRN (08:20)
[2024-04-15] MEDS ORDERED: potassium Cl 40MEQ/270ML bag 250 ML IV PRN (08:20)
[2024-04-15] MEDS ORDERED: potassium Cl 20 mEq SR tablet PO PRN ×2 (08:20)
[2024-04-15] MEDS ORDERED: potassium Cl 20mEq/100mL bag 100 ML IV PRN (08:20)
[2024-04-15] MEDS ORDERED: potassium CL 10mEq/100ml bag 100 ML IV PRN (08:20)
[2024-04-15] MEDS ORDERED: magnesium sulf-water 2g/50mL 50 ML IV PRN (08:20)
[2024-04-15] MEDS: magnesium hydroxide 30ml (MOM) UD suspension PO PRN (09:49)
[2024-04-15] MEDS: magnesium Cl slow-release 64mg tablet PO SCH (20:00)
[2024-04-16] VITALS (8 sets, daily range): BP systolic 91–124; BP diastolic 55–75; PULSE 72–88; RESP 17–24; TEMP 96.7–98.4; O2SAT 95–98
[2024-04-16 06:09] LABS: EOSINOPHILS % (AUTO) 0 % (0-6); HEMOGLOBIN 8.1 g/dl (14.0-17.9); LYMPHOCYTES # (AUTO) 0.8 X10'3 (1.1-4.8); LYMPHOCYTES % (AUTO) 7.1 % (21-51); MONOCYTES # (AUTO) 1.1 X10'3 (0-0.9); WHITE BLOOD COUNT 11.8 X10'3 (4.5-11.0)
[2024-04-16 06:13] LABS: BASOPHILS % (AUTO) 0 % (0-1); HEMATOCRIT 23.8 % (42.0-52.0); MEAN CORPUSCULAR HEMOGLOBIN 30.4 PG (27.0-31.0); MEAN CORPUSCULAR HGB CONC 34.1 g/dL (33.0-36.5); MEAN CORPUSCULAR VOLUME 89.2 FL (78-98); MEAN PLATELET VOLUME 10.5 FL (7.4-10.4); NEUTROPHILS # (AUTO) 9.9 X10'3 (1.8-7.7); NEUTROPHILS % (AUTO) 83.9 % (42-75); PLATELET COUNT 91 X10'3 (140-440); RED BLOOD COUNT 2.67 X10'6 (4.70-6.10); RED CELL DISTRIBUTION WIDTH 14.8 % (11.5-14.5)
[2024-04-16 06:22] LABS: ALBUMIN 3.2 G/DL (3.4-5.0); ANION GAP 5 (8-16); BLOOD UREA NITROGEN 19 MG/DL (7-18); BUN/CREATININE RATIO 27.5 (10.0-20.0); CALCIUM 7.8 MG/DL (8.5-10.1); CHLORIDE 101 MMOL/L (99-107); CREATININE 0.69 MG/DL (0.60-1.10); GLUCOSE 114 MG/DL (70-104); MAGNESIUM 2.3 MG/DL (1.5-2.4); POTASSIUM 4.9 MMOL/L (3.5-5.1); SODIUM 132 MMOL/L (135-145); TOTAL CARBON DIOXIDE 26.4 MMOL/L (24-32); eCRCL 116 ML/MIN; eGFR > 90 ML/MIN
[2024-04-16] MEDS: JUVEN Smoothie Arginine/Glut./Ca2+Bmb (Juven 19.3pkt) 240ml cup PO SCH (07:30)
[2024-04-16 07:39] LABS: NUCLEATED RED BLOOD CELLS 1 /100WBC (0-0); PLATELET ESTIMATE DECREASED; POLYCHROMASIA 3+; TOTAL CELLS COUNTED 100
[2024-04-16 07:40] LABS: TARGET CELLS FEW
[2024-04-16] MEDS: amiodarone 200mg tablet PO SCH (09:28)
[2024-04-16] MEDS: lactose-reduced food (Ensure Enlive) - 237ml bottle PO SCH (12:30)
[2024-04-16] MEDS: midodrine 5mg tablet PO SCH (15:04)
[2024-04-17] VITALS (8 sets, daily range): BP systolic 102–113; BP diastolic 66–78; PULSE 66–118; RESP 15–24; TEMP 96.7–98; O2SAT 93–99
[2024-04-17 07:08] LABS: BASOPHILS % (AUTO) 0.1 % (0-1); EOSINOPHILS % (AUTO) 0.1 % (0-6); HEMOGLOBIN 7.7 g/dl (14.0-17.9); LYMPHOCYTES # (AUTO) 0.9 X10'3 (1.1-4.8); LYMPHOCYTES % (AUTO) 9.2 % (21-51); MEAN CORPUSCULAR HEMOGLOBIN 30.4 PG (27.0-31.0); MEAN CORPUSCULAR HGB CONC 33.6 g/dL (33.0-36.5); MEAN CORPUSCULAR VOLUME 90.5 FL (78-98); MEAN PLATELET VOLUME 9.5 FL (7.4-10.4); MONOCYTES % (AUTO) 10.9 % (2-12); NEUTROPHILS # (AUTO) 7.4 X10'3 (1.8-7.7); NEUTROPHILS % (AUTO) 79.7 % (42-75); PLATELET COUNT 113 X10'3 (140-440); RED BLOOD COUNT 2.54 X10'6 (4.70-6.10); RED CELL DISTRIBUTION WIDTH 14.5 % (11.5-14.5); WHITE BLOOD COUNT 9.3 X10'3 (4.5-11.0)
[2024-04-17 07:14] LABS: ALBUMIN 2.7 G/DL (3.4-5.0); ANION GAP 5 (8-16); BLOOD UREA NITROGEN 19 MG/DL (7-18); BUN/CREATININE RATIO 23.8 (10.0-20.0); CALCIUM 7.5 MG/DL (8.5-10.1); CHLORIDE 97 MMOL/L (99-107); GLUCOSE 102 MG/DL (70-104); MAGNESIUM 2.3 MG/DL (1.5-2.4); POTASSIUM 4.5 MMOL/L (3.5-5.1); SODIUM 131 MMOL/L (135-145); TOTAL CARBON DIOXIDE 29.4 MMOL/L (24-32); eCRCL 100 ML/MIN; eGFR > 90 ML/MIN
[2024-04-17] MEDS ORDERED: amiodarone/D5 360MG/200ML BAG 200 ML IV SCH (09:20)
[2024-04-17] MEDS: ferrous sulfate 325mg tablet PO SCH (11:26)
[2024-04-17] MEDS: enoxaparin 40mg/0.4ml syringe SUBCUT SCH (11:26)
[2024-04-17] MEDS: sotalol HCl 40mg (1/2 tablet) PO SCH (11:27)
[2024-04-17] MEDS: folic acid/vitamin B complex w/vitamin C 0.8mg tablet PO SCH (11:31)
[2024-04-17 11:40] LABS: HEMATOCRIT 24.3 % (42.0-52.0); HEMOGLOBIN 8.1 g/dl (14.0-17.9); MEAN CORPUSCULAR HGB CONC 33.3 g/dL (33.0-36.5); MEAN CORPUSCULAR VOLUME 90.3 FL (78-98); MEAN PLATELET VOLUME 9.3 FL (7.4-10.4); PLATELET COUNT 138 X10'3 (140-440); RED BLOOD COUNT 2.69 X10'6 (4.70-6.10); RED CELL DISTRIBUTION WIDTH 14.6 % (11.5-14.5); WHITE BLOOD COUNT 11.5 X10'3 (4.5-11.0)
[2024-04-17] MEDS: furosemide 20 MG/2 ML vial IV SCH (16:19)
[2024-04-17] MEDS ORDERED: enoxaparin 40mg/0.4ml syringe SUBCUT SCH (20:00)
[2024-04-18] VITALS (20 sets, daily range): BP systolic 90–144; BP diastolic 59–79; PULSE 74–123; RESP 16–25; TEMP 96.6–100; O2SAT 95–99
[2024-04-18 06:16] LABS: BASOPHILS % (AUTO) 0.1 % (0-1); EOSINOPHILS # (AUTO) 0.1 X10'3 (0-0.9); HEMATOCRIT 22.9 % (42.0-52.0); HEMOGLOBIN 7.6 g/dl (14.0-17.9); LYMPHOCYTES # (AUTO) 0.7 X10'3 (1.1-4.8); LYMPHOCYTES % (AUTO) 7.3 % (21-51); MEAN CORPUSCULAR HEMOGLOBIN 30.2 PG (27.0-31.0); MEAN CORPUSCULAR HGB CONC 33.3 g/dL (33.0-36.5); MEAN CORPUSCULAR VOLUME 90.6 FL (78-98); MEAN PLATELET VOLUME 9.5 FL (7.4-10.4); MONOCYTES # (AUTO) 1.1 X10'3 (0-0.9); MONOCYTES % (AUTO) 11.7 % (2-12); NEUTROPHILS # (AUTO) 7.7 X10'3 (1.8-7.7); NEUTROPHILS % (AUTO) 79.9 % (42-75); PLATELET COUNT 165 X10'3 (140-440); RED BLOOD COUNT 2.52 X10'6 (4.70-6.10); RED CELL DISTRIBUTION WIDTH 14.4 % (11.5-14.5); WHITE BLOOD COUNT 9.7 X10'3 (4.5-11.0)
[2024-04-18 06:33] LABS: ALBUMIN 2.5 G/DL (3.4-5.0); ANION GAP 3 (8-16); BLOOD UREA NITROGEN 19 MG/DL (7-18); CALCIUM 7.5 MG/DL (8.5-10.1); CHLORIDE 97 MMOL/L (99-107); CREATININE 0.76 MG/DL (0.60-1.10); GLUCOSE 102 MG/DL (70-104); MAGNESIUM 3.1 MG/DL (1.5-2.4); POTASSIUM 3.7 MMOL/L (3.5-5.1); SODIUM 132 MMOL/L (135-145); eCRCL 105 ML/MIN; eGFR > 90 ML/MIN
[2024-04-18] MEDS ORDERED: acetaminophen 325mg tablet PO PRN (13:35)
[2024-04-18] MEDS: morphine 2 MG/ML inj. syringe IV ONE (13:42)
[2024-04-18] MEDS: diphenhydrAMINE 50 mg/ml inj IV ONE ×2 (13:42→20:51)
[2024-04-18] MEDS: acetaminophen 325mg tablet PO PRN (13:43)
[2024-04-18] MEDS: sotalol 80mg tablet PO ONE (16:02)
[2024-04-18] MEDS: sotalol 80mg tablet PO SCH (20:00)
[2024-04-19] VITALS (10 sets, daily range): BP systolic 97–117; BP diastolic 61–78; PULSE 84–118; RESP 14–20; TEMP 97.5–98.4; O2SAT 96–98
[2024-04-19 07:29] LABS: BASOPHILS % (AUTO) 0.1 % (0-1); EOSINOPHILS # (AUTO) 0.1 X10'3 (0-0.9); EOSINOPHILS % (AUTO) 1.7 % (0-6); HEMATOCRIT 27.3 % (42.0-52.0); HEMOGLOBIN 9.3 g/dl (14.0-17.9); LYMPHOCYTES # (AUTO) 0.6 X10'3 (1.1-4.8); LYMPHOCYTES % (AUTO) 7.8 % (21-51); MEAN CORPUSCULAR HEMOGLOBIN 30.5 PG (27.0-31.0); MEAN CORPUSCULAR HGB CONC 34.1 g/dL (33.0-36.5); MEAN CORPUSCULAR VOLUME 89.4 FL (78-98); MEAN PLATELET VOLUME 8.9 FL (7.4-10.4); MONOCYTES # (AUTO) 0.8 X10'3 (0-0.9); MONOCYTES % (AUTO) 10.9 % (2-12); NEUTROPHILS % (AUTO) 79.5 % (42-75); PLATELET COUNT 195 X10'3 (140-440); RED BLOOD COUNT 3.05 X10'6 (4.70-6.10); RED CELL DISTRIBUTION WIDTH 14.9 % (11.5-14.5); WHITE BLOOD COUNT 7.5 X10'3 (4.5-11.0)
[2024-04-19 07:58] LABS: ALBUMIN 2.2 G/DL (3.4-5.0); ANION GAP 6 (8-16); BLOOD UREA NITROGEN 15 MG/DL (7-18); BUN/CREATININE RATIO 18.8 (10.0-20.0); CALCIUM 7.7 MG/DL (8.5-10.1); CHLORIDE 100 MMOL/L (99-107); GLUCOSE 129 MG/DL (70-104); POTASSIUM 3.2 MMOL/L (3.5-5.1); SODIUM 136 MMOL/L (135-145); TOTAL CARBON DIOXIDE 30.1 MMOL/L (24-32); eCRCL 100 ML/MIN; eGFR > 90 ML/MIN
[2024-04-19] MEDS: calcium polycarbophil 625mg tablet PO SCH (09:40)
[2024-04-19] MEDS: furosemide 20MG tablet PO SCH (09:40)
[2024-04-19 09:41] LABS: MAGNESIUM 2.3 MG/DL (1.5-2.4)
[2024-04-19] MEDS: pantoprazole 40mg Tablet.DR PO SCH (10:43)
[2024-04-19] MEDS: psyllium seed 5.8 gm packet (sugar-free) PO SCH (10:43)
[2024-04-19] MEDS: potassium Cl 40MEQ/1/2NS 520ml 520 ML IV PRN (10:44)
[2024-04-19] MEDS: potassium Cl 20 mEq SR tablet PO SCH (17:52)
[2024-04-19] MEDS: apixaban 2.5mg tablet PO SCH (20:08)
[2024-04-20] VITALS (9 sets, daily range): BP systolic 96–144; BP diastolic 57–71; PULSE 71–125; RESP 12–24; TEMP 97.4–99.1; O2SAT 93–96
[2024-04-20] MEDS: temazepam 15mg capsule PO ONE (01:51)
[2024-04-20 07:49] LABS: ALBUMIN 2.5 G/DL (3.4-5.0); ANION GAP 8 (8-16); BLOOD UREA NITROGEN 9 MG/DL (7-18); CALCIUM 8.2 MG/DL (8.5-10.1); CHLORIDE 101 MMOL/L (99-107); CREATININE 0.69 MG/DL (0.60-1.10); GLUCOSE 135 MG/DL (70-104); POTASSIUM 3.7 MMOL/L (3.5-5.1); SODIUM 135 MMOL/L (135-145); TOTAL CARBON DIOXIDE 25.9 MMOL/L (24-32); eCRCL 116 ML/MIN; eGFR > 90 ML/MIN
[2024-04-20] MEDS: diltiazem-NS 100mg/100ml 100 ML IV SCH ×2 (10:58→18:30)
[2024-04-20] MEDS: digoxin 250mcg/ml 2ml ampule IV ONE (23:49)
[2024-04-21] VITALS (12 sets, daily range): BP systolic 91–113; BP diastolic 56–72; PULSE 57–126; RESP 14–22; TEMP 96.9–98; O2SAT 94–100
[2024-04-21 08:58] LABS: ALBUMIN 2.4 G/DL (3.4-5.0); ANION GAP 9 (8-16); BLOOD UREA NITROGEN 10 MG/DL (7-18); BUN/CREATININE RATIO 14.9 (10.0-20.0); CALCIUM 8.8 MG/DL (8.5-10.1); CHLORIDE 102 MMOL/L (99-107); CREATININE 0.67 MG/DL (0.60-1.10); GLUCOSE 101 MG/DL (70-104); POTASSIUM 4.1 MMOL/L (3.5-5.1); SODIUM 135 MMOL/L (135-145); eCRCL 170 ML/MIN; eGFR > 90 ML/MIN
[2024-04-21 09:32] LABS: MAGNESIUM 2.2 MG/DL (1.5-2.4)
[2024-04-21] MEDS: digoxin 250mcg/ml 2ml ampule IV SCH (10:34)
[2024-04-22] VITALS (7 sets, daily range): BP systolic 90–106; BP diastolic 53–67; PULSE 63–101; RESP 16–20; TEMP 96.7–98.7; O2SAT 93–100
[2024-04-22 08:00] LABS: ALBUMIN 2.5 G/DL (3.4-5.0); ANION GAP 7 (8-16); BLOOD UREA NITROGEN 13 MG/DL (7-18); BUN/CREATININE RATIO 17.6 (10.0-20.0); CALCIUM 8.3 MG/DL (8.5-10.1); CHLORIDE 99 MMOL/L (99-107); CREATININE 0.74 MG/DL (0.60-1.10); GLUCOSE 99 MG/DL (70-104); MAGNESIUM 2.1 MG/DL (1.5-2.4); POTASSIUM 3.9 MMOL/L (3.5-5.1); SODIUM 134 MMOL/L (135-145); TOTAL CARBON DIOXIDE 28.2 MMOL/L (24-32); eCRCL 134 ML/MIN; eGFR > 90 ML/MIN
[2024-04-22 08:01] LABS: DIGOXIN 1.2 NG/ML (0.9-1.9)
[2024-04-22] MEDS: diltiazem CD 120mg capsule (once-daily) PO SCH (10:36)
[2024-04-22] MEDS: digoxin 250mcg (0.25mg) tablet PO SCH (10:37)
[2024-04-23] MEDS ORDERED: acetaminophen w/codeine (30MG) #3 tablet PO SCH
[2024-04-23 02:00] VITALS: BP 91/51; PULSE 69; RESP 18; TEMP 97.6; O2SAT 95
[2024-04-23 06:00] VITALS: BP 96/54; PULSE 82; RESP 19; TEMP 98.8; O2SAT 96
[2024-04-23 08:00] VITALS: RESP 19; O2SAT 96
[2024-04-23] MEDS ORDERED: ACET-2 PO ×2 (10:17→13:45)
[2024-04-23] MEDS ORDERED: ATOR10TA PO ×2 (10:17→13:45)
[2024-04-23] MEDS ORDERED: FIBER PO ×2 (10:17→13:45)
[2024-04-23] MEDS ORDERED: SOTA80TA73 PO ×2 (10:17→13:45)
[2024-04-23] MEDS ORDERED: FOLI0.8T22 PO ×2 (10:17→13:45)
[2024-04-23] MEDS ORDERED: DIGO250T4 PO ×2 (10:17→13:45)
[2024-04-23] MEDS ORDERED: ASPI81TA53 PO ×2 (10:17→13:45)
[2024-04-23] MEDS ORDERED: POTA-197 PO ×2 (10:17→13:45)
[2024-04-23] MEDS ORDERED: psyllium 5.8g sugar-free pkt PO ×2 (10:17→13:45)
[2024-04-23] MEDS ORDERED: CLOP75TA34 PO ×2 (10:17→13:44)
[2024-04-23] MEDS ORDERED: HYDR-3972 PO ×3 (10:17→13:45)
[2024-04-23] MEDS ORDERED: APIX2.5T PO ×2 (10:17→13:44)
[2024-04-23] MEDS ORDERED: PANT40TA54 PO ×2 (10:17→13:45)
[2024-04-23] MEDS ORDERED: CARCD120C PO ×2 (10:17→13:44)
[2024-04-23] MEDS ORDERED: FURO20TA4 PO ×2 (10:17→13:45)
[2024-04-23] MEDS ORDERED: FER325T PO ×2 (10:17→13:44)
[2024-04-23 11:00] VITALS: BP 99/52; PULSE 67; RESP 17; TEMP 98.1; O2SAT 98
[2024-04-26] MEDS ORDERED: HYDR-3973 PO (10:23)
[2024-10-10] MEDS ORDERED: albumin (human) 25% 100 ML IV solution IV ONE (08:00)
== END 2024-04-23 16:36 | disposition home or self-care (01) | DRG 252 ==
LOC: PAS IN 05:42 → CICU 2S 11:32 → PCU 3S 04-15 16:24
PROVIDERS: ADMIT Thoracic Surgery (Cardiothoracic Vascular Surgery); ATTEND Thoracic Surgery (Cardiothoracic Vascular Surgery)
PROC: 02UW0JZ Supplement Thoracic Aorta, Descending with Synthetic Substitute, Open Approach (ICD-10-PCS; 2024-04-12)
PROC: B24BZZ4 Ultrasonography of Heart with Aorta, Transesophageal (ICD-10-PCS; 2024-04-12)
PROC: 30233R1 Transfusion of Nonautologous Platelets into Peripheral Vein, Percutaneous Approach (ICD-10-PCS; 2024-04-12)
PROC: 30233N1 Transfusion of Nonautologous Red Blood Cells into Peripheral Vein, Percutaneous Approach (ICD-10-PCS; 2024-04-12)
PROC: 02UW0JZ Supplement Thoracic Aorta, Descending with Synthetic Substitute, Open Approach (ICD-10-PCS; principal; 2024-04-12 08:00)
DX: I71.21 Aneurysm of the ascending aorta, without rupture (principal); I50.31 Acute diastolic (congestive) heart failure; I48.0 Paroxysmal atrial fibrillation; I25.10 Atherosclerotic heart disease of native coronary artery without angina pectoris; K59.03 Drug induced constipation; D64.89 Other specified anemias; Q23.81 Bicuspid aortic valve
CPT/HCPCS: 93312; 93325; Z7506; Z7508; 36415; 36430; 36600; 71045; 71046; 76376; 80048; 80053; 80162; 81003; 82330; 82435; 82803; 82947; 82948; 83036; 83735; 84100; 84132; 84295; 85007; 85018; 85025; 85027; 85347; 85384; 85610; 85730; 86885; 86900; 86901; 86920; 87081; 93005; 94002; 94760; 97110; 97116; 97161; 97530; A4615; A4618; A6253; A6258; A6449; A7000; A7048; C1751; C1768; C9520; G0378; J0171; J0282; J0690; J1100; J1160; J1200; J1250; J1644; J1650; J1815; J1885; J1940; J2003; J2060; J2150; J2250; J2270; J2370; J2405; J2704; J2720; J2919; J3370; J3372; J3475; J3480; J3490; J7030; J7040; J7050; J7060; J7120; P9016; P9035; P9045; P9047

== ENCOUNTER 2024-05-27 19:12 | Emergency (ER) | payer BC ==
[~2024-05-27] VITALS: Ht 172.7 cm; Wt 79.5 kg
[~2024-05-27 19:12] MED LIST changes: +APIX2.5T PO; +ASPI81TA53 PO; +ATOR10TA PO; +CARCD120C PO; +CLOP75TA34 PO; +DIGO250T4 PO; +FER325T PO; +FIBER PO; +FOLI0.8T22 PO; +FURO20TA4 PO; +HYDR-3973 PO; -Insulin Reg/NS 100units/100mL 100 ML IV SCH; +PANT40TA54 PO; +POTA-197 PO; +SOTA80TA73 PO; -dextrose 50%-water 50ml dispensing syringe IV PRN; -insulin glargine (Lantus) pen - multi-dose SQ PRN; -metoprolol tartrate 12.5mg (1/2 tablet) PO ONE; +psyllium 5.8g sugar-free pkt PO
[2024-05-27 20:34] LABS: BASOPHILS % (AUTO) 0.4 % (0-1); EOSINOPHILS # (AUTO) 0.1 X10'3 (0-0.9); EOSINOPHILS % (AUTO) 1.3 % (0-6); HEMOGLOBIN 12.8 g/dl (14.0-17.9); LYMPHOCYTES # (AUTO) 1.3 X10'3 (1.1-4.8); LYMPHOCYTES % (AUTO) 23.1 % (21-51); MEAN CORPUSCULAR HEMOGLOBIN 28.9 PG (27.0-31.0); MEAN CORPUSCULAR HGB CONC 33.7 g/dL (33.0-36.5); MEAN CORPUSCULAR VOLUME 85.8 FL (78-98); MEAN PLATELET VOLUME 9.2 FL (7.4-10.4); MONOCYTES # (AUTO) 0.6 X10'3 (0-0.9); MONOCYTES % (AUTO) 10.4 % (2-12); NEUTROPHILS # (AUTO) 3.6 X10'3 (1.8-7.7); NEUTROPHILS % (AUTO) 64.8 % (42-75); PLATELET COUNT 188 X10'3 (140-440); RED BLOOD COUNT 4.43 X10'6 (4.70-6.10); RED CELL DISTRIBUTION WIDTH 15.6 % (11.5-14.5); WHITE BLOOD COUNT 5.6 X10'3 (4.5-11.0)
[2024-05-27 20:50] LABS: ALANINE AMINOTRANSFERASE 29 U/L (12-78); ALBUMIN 3.5 G/DL (3.4-5.0); ALBUMIN/GLOBULIN RATIO 0.8 (1.1-1.5); ALKALINE PHOSPHATASE 119 IU/L (46-116); ANION GAP 5 (8-16); ASPARTATE AMINO TRANSFERASE 16 U/L (10-37); BILIRUBIN,TOTAL 0.6 MG/DL (0.1-1.0); BLOOD UREA NITROGEN 14 MG/DL (7-18); BUN/CREATININE RATIO 15.9 (10.0-20.0); CALCIUM 8.7 MG/DL (8.5-10.1); CHLORIDE 105 MMOL/L (99-107); CREATININE 0.88 MG/DL (0.60-1.10); GLUCOSE 119 MG/DL (70-104); POTASSIUM 3.7 MMOL/L (3.5-5.1); SODIUM 141 MMOL/L (135-145); TOTAL CARBON DIOXIDE 30.8 MMOL/L (24-32); TOTAL PROTEIN 7.8 G/DL (6.4-8.2); eCRCL 91 ML/MIN; eGFR 90 ML/MIN
[2024-05-27 20:58] LABS: PRO BRAIN NATRIURETIC PEPTIDE 1334 PG/ML (0-125)
[2024-05-27 23:04] VITALS: BP 108/54; PULSE 41; O2SAT 99
[2024-05-28 00:55] VITALS: RESP 15
[2024-05-28 02:11] VITALS: TEMP 98.7
== END 2024-05-28 02:14 | disposition home or self-care (01) ==
LOC: ER 19:13
DX: R00.2 Palpitations (principal); I49.9 Cardiac arrhythmia, unspecified; Z79.899 Other long term (current) drug therapy; Z79.82 Long term (current) use of aspirin
CPT/HCPCS: 36415; 71045; 80053; 83880; 84484; 85025; 93005; 99285